=== PATIENT | male | born 1970 | race African-American/Black ===

== ENCOUNTER 2024-01-23 14:31 | Emergency (ER) | payer OTHER ==
[~2024-01-23] VITALS: Ht 167.6 cm; Wt 72.6 kg
[2024-01-23] MEDS ORDERED: COZAAR25 MG (15:21)
[2024-01-23 17:09] LABS: HEMATOCRIT 41.1 % (39.0-48.0); HEMOGLOBIN 14.4 g/dL (13-16.00); MEAN CELL VOLUME 98.8 fL (80.0-100.00); MEAN CORPUSCULAR HEMOGLOBIN 34.7 pg (27.00-32.0); MEAN CORPUSCULAR HGB CONC 35.1 g/dl (32.0-36.0); PLATELET COUNT 218 K/uL (150-450); RED BLOOD COUNT 4.16 M/uL (4.00-6.00); RED CELL DISTRIBUTION WIDTH 12.4 % (11.5-14.5)
[2024-01-23 17:29] LABS: INR 1.09; PARTIAL THROMBOPLASTIN TIME 29.2 SECONDS (22.0-34.0); PROTHROMBIN TIME 11.4 SECONDS (9.0-11.5)
== END 2024-01-23 18:34 | disposition home or self-care (01) ==
LOC: ER 14:32
PROVIDERS: General Practice
DX: R04.0 Epistaxis (principal)